=== PATIENT | male | born 1965 ===

== ENCOUNTER 2018-05-11 10:00 | Outpatient (CLI) | payer OTHER | END 2018-05-11 10:01 | disposition home or self-care (01) | LOC: CONVCARE 10:00 → EDBD 10:00 → CONVCARE 10:01 | PROVIDERS: ATTEND Orthopaedic Surgery | DX: M75.41 Impingement syndrome of right shoulder (principal) | CPT/HCPCS: 73030 ==

== ENCOUNTER 2018-09-11 13:42 | Outpatient (CLI) | payer OTHER | END 2018-09-11 13:43 | disposition home or self-care (01) | LOC: CONVCARE 13:42 | PROVIDERS: ATTEND Orthopaedic Surgery | DX: M25.521 Pain in right elbow (principal); M79.89 Other specified soft tissue disorders | CPT/HCPCS: 73070 ==